=== PATIENT | female | born 1990 | race Caucasian/White ===

== ENCOUNTER → 2017-10-27 | Outpatient (CLI) | payer MEDICAID ==
[~2017-10-27] MED LIST: LEVO.075 PO
== END ==
LOC: HPND 09:19 → MERGE 09:45
PROVIDERS: ATTEND Obstetrics & Gynecology
DX: O99.282 Endocrine, nutritional and metabolic diseases complicating pregnancy, second trimester (principal); O99.89 Other specified diseases and conditions complicating pregnancy, childbirth and the puerperium; M32.9 Systemic lupus erythematosus, unspecified
CPT/HCPCS: 76816

== ENCOUNTER → 2017-11-25 | Outpatient (CLI) | payer MEDICAID | LOC: HPND 09:20 | PROVIDERS: ATTEND Obstetrics & Gynecology | DX: O99.282 Endocrine, nutritional and metabolic diseases complicating pregnancy, second trimester (principal); O99.89 Other specified diseases and conditions complicating pregnancy, childbirth and the puerperium; M32.9 Systemic lupus erythematosus, unspecified | CPT/HCPCS: 76816 ==

== ENCOUNTER → 2017-12-23 | Outpatient (CLI) | payer MEDICAID | LOC: HPND 14:05 | PROVIDERS: ATTEND Obstetrics & Gynecology | DX: O99.283 Endocrine, nutritional and metabolic diseases complicating pregnancy, third trimester (principal); O09.293 Supervision of pregnancy with other poor reproductive or obstetric history, third trimester; O99.89 Other specified diseases and conditions complicating pregnancy, childbirth and the puerperium; M32.9 Systemic lupus erythematosus, unspecified | CPT/HCPCS: 76816 ==

== ENCOUNTER 2018-02-09 12:05 | Emergency (ER) | payer MEDICAID ==
[2018-02-09] MEDS ORDERED: VALA1TAB PO (13:15)
--- NOTE | 2018-02-09 13:15 | PD ---
HPI Chief Complaint Painful lymph node in the groin and a painful vulvar lesion on the right Date Seen: Feb 09, 2018 Time Seen: 13:00 Travel History International Travel<30 Days: No Contact w/Intl Traveler<30Days: No Known Affected Area: No History of Present Illness HPI Patient is 27-year-old white female A4 now [address] Nelson in the [facility] and presents here with 1 day history of a vaginal vulvar painful ulcer purulent and pain in her right groin from a swollen lymph node patient states she has no history of sexually transmitted disease herpes syphilis gonorrhea. She has never had this kind of ulcer or lesion before. States that she did run some fever yesterday but not today has not taken any Tylenol or medicine for the pains just pretty bad pain related to this lesion. Baby is active heart rate tracing is reactive she is not alberta and she plans a vaginal delivery. Weeks Gestation: 37 Para: 1 : 6 Last Menstrual Period: Feb 09, 2018 Miscarriage: 4 History Past Medical History Narrative Medical Patient has a history of a lupus but is not on steroids at this time, he has a history of Franchesca's thyroiditis and takes Synthroid now. She has not been treated with radioactive iodine or surgery for hyperthyroid she states that her levels just go up and down periodically and she takes Synthroid but has never needed any other medication or treatment, has a history of asthma Obstetric History Obstetric History 4 early losses and one vaginal delivery in the past Social History Alcohol Use: No Tobacco Use: No Substance Abuse: No Allergies-Medications (Allergen,Severity, Reaction): Coded Allergies: No Known Allergies (Verified , 09/16/08) Home Meds Active Scripts Valacyclovir (Valacyclovir) 1,000 Mg Tab, 1000 MG PO BID for Mgmt Viral Infection for 10 Days, #2 TAB 1 Refill Prov:Scott Wells II, MD 02/09/18 Reported Medications Levothyroxine Sodium (Synthroid) 75 Mcg Tab, 75 MCG PO DAILY, 0 Refills 09/19/08 Review of Systems General / Constitutional: No: Fever, Weight Gain, Chills, Other Eyes: No: Diploplia, Blurred Vision, Visual changes, Pain, Photophobia HENT: No: Headaches, Vertigo, Lightheadedness Cardiovascular: No: Irregular Rhythm, Chest Pain or Discomfort, Palpitations, Tachycardia, Syncope, Varicosities, Edema, Cyanosis Respiratory: No: Cough, Short of Breath, Other Gastrointestinal: No: Nausea, Vomiting, Diarrhea Genitourinary: No: Decreased Urinary Output, Oliguria Musculoskeletal: No: Limited ROM, Weakness, Cramping, Edema, Pain Skin: No Rash, No Itching, No Dryness, No Lumps, No Change in Pigmentation, No Change in Nails, No Alopecia, No Lesions Neurologic: No: Weakness, Dizziness, Syncope, Focal Abnormalities, Coordination Problem, Headache, Slurred Speech, Seizures Psychiatric: No: Depression, Suicidal Ideations, Homicidal Ideation Endocrine: No: Heat Intolerance, Cold Intolerance, Polydipsia, Polyuria, Other Physical Exam Narrative GENERAL: Well-nourished, well-developed patient. SKIN: Warm and dry. HEAD: Normocephalic and atraumatic. EYES: No scleral icterus. No injection or drainage. ENT: No nasal drainage noted. Mucous membranes pink. Airway patent. NECK: Supple, trachea midline. No JVD. CARDIOVASCULAR: Regular rate and rhythm without murmurs, gallops, or rubs. RESPIRATORY: Breath sounds equal bilaterally. No accessory muscle use. BREASTS: Bilateral exam showed no masses , no retractions, no nipple discharge. ABDOMEN/GI: Abdomen soft, non-tender, bowel sounds present, no rebound, no guarding , in the right inguinal area that she there is some swelling and tenderness and there is a hint of a swollen lymph nodes there but is not directly palpable and is to tenderl to squeeze that hard Gravid to [37-] weeks size Fundal Height: [37-] GENITOURINARY: External Genitalia: The right labia minora and the lower half of that there is a small 4 mm lesion that is circular with small pustular center and this area is swollen, indurated and very tender, herpes culture was performed [-] Presentation: [-vtx] Membranes: [intact ] Uterine Contractions: [none-] FHT's: Category: [1-] Baseline: [133-] Reactive: [R-] Variability: [-mod] Decels: [-none] EXTREMITIES: No cyanosis or edema. BACK: Nontender without obvious deformity. No CVA tenderness. NEUROLOGICAL: Awake and alert. Motor and sensory grossly within normal limits. Five out of 5 muscle strength in all muscle groups. Normal speech. Data Data Orders Orders Hsv 1,2 Abs Igm (02/09/18 12:56) Herpes Simplex Virus Culture (02/09/18 12:56) Labs Herpes culture done and is pending MDM Interpretation(s) Patient is 27-year-old white female at 37 weeks he goes to [facility] for care. She has a 1 day history of painful vulvar lesion with swelling and swelling in the ipsilateral lymph node and inguinal area. She has no history of STDs , herpes gonorrhea syphilis ,. She has never had a similar lesion or spot develop in the past. 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 Also serum HSV 1 and 2 IgM being drawn. I explained her that I did not know it was herpes but it was highly suspicious of that and that she needed to know what we were thinking because she is 37 weeks and close to delivery I explained to her that if this lesion is present and she goes into labor or her water breaks she will have to have a , if it goes away and starts to come back she needs a , however if she takes medication the lesion goes away and she is at least a few days out from total recovery then she could potentially deliver normally per vagina. She will take Tylenol for pain and use an ice pack for the swelling and for comfort. I will discuss all the above with her family practice doctor Dr. Carlton Nelson Diagnosis Diagnosis: Primary Impression: Vulvar ulcer Additional Impression: Lymphadenopathy, inguinal Disposition: 01 DISCHARGE HOME Condition: Stable Scripts Valacyclovir (Valacyclovir) 1,000 Mg Tab 1000 MG PO BID for Mgmt Viral Infection for 10 Days, #2 TAB 1 Refill Prov: Scott Wells II, MD 02/09/18 Scott Wells II, MD Feb 09, 2018 13:15
[2018-02-12 23:51] LABS: HSV IGM IFA NEGATIVE; HSV2 IGM IFA NEGATIVE
== END 2018-02-09 13:46 | disposition home or self-care (01) ==
LOC: HOBED 12:05
DX: O23.593 Infection of other part of genital tract in pregnancy, third trimester (principal); O26.893 Other specified pregnancy related conditions, third trimester; R59.0 Localized enlarged lymph nodes; Z3A.37 37 weeks gestation of pregnancy
CPT/HCPCS: 36415; 59025; 86695; 86696; 87255

== ENCOUNTER 2018-02-19 15:10 | Emergency (ER) | payer MEDICAID ==
[~2018-02-19 15:10] MED LIST changes: +VALA1TAB PO
[2018-02-19 15:35] VITALS: BP 116/77; PULSE 94
--- NOTE | 2018-02-19 16:04 | PD ---
HPI Chief Complaint decreased mvt Date Seen: Feb 19, 2018 Time Seen: 15:47 Travel History International Travel<30 Days: No Contact w/Intl Traveler<30Days: No History of Present Illness HPI Patient is a 27 year old female at 39 and 1/7 weeks gestation, EDC 2017, known to [facility]. She presents with decreased movement. She notes baby has been hiccuping but not active for about 14hr. She had Reactive NST 02/18 ( yesterday) [facility] with reported EFW 8lb at that time. She denies leakage of fluid, vaginal bleeding. She has some LE swelling but denies CH/N/V/D /fever/sick contacts/SOB/calf pain/dizziness/seeing spots. OB care is with Dr. Carlton Nelson. CIARA 02/16/2018. PMH significant for lupus, hypothyroidism on Synthroid, PCOS on metformin, and Eclampsia in 2011. She established with [facility] officially in September 2017 and has had serial ultrasounds every 4 weeks for growth and twice weekly testing since 32 weeks gestation. History Past Medical History Narrative Medical PCOS Hypothyroidism History of eclampsia 2011 Lupus - negative SSA and SSB Vaginal lesion, status post clindamycin, viral culture/serology negative January 2018 Obstetric History Obstetric History 0141 4 spontaneous abortions One living male child born at 35 weeks gestation in 2011 (eclampsia) Past Surgical History Narrative Surgical D&C for miscarriage [place] teeth removal Family History Narrative Family History Mother and maternal aunt with depressive disorder, thyroid dysfunction Social History Alcohol Use: No Tobacco Use: No Substance Abuse: No Allergies-Medications (Allergen,Severity, Reaction): Coded Allergies: Penicillins (Verified Allergy, Severe, hives, vomiting, 02/09/18) strawberry (Verified Allergy, Severe, Anaphylaxis, 02/09/18) Home Meds Active Scripts Valacyclovir (Valacyclovir) 1,000 Mg Tab, 1000 MG PO BID for Mgmt Viral Infection for 10 Days, #2 TAB 1 Refill Prov:Scott Wells II, MD 02/09/18 Reported Medications Levothyroxine Sodium (Synthroid) 75 Mcg Tab, 75 MCG PO DAILY, 0 Refills 09/19/08 Review of Systems General / Constitutional: No: Fever, Chills Eyes: No: Blurred Vision, Visual changes HENT: No: Headaches, Vertigo Cardiovascular: No: Chest Pain or Discomfort, Palpitations Respiratory: No: Cough, Short of Breath Gastrointestinal: Abdominal Pain, No: Nausea, Vomiting, Diarrhea Genitourinary: No: Frequency, Dysuria, Hematuria Skin: No Rash, No Itching Physical Exam Narrative GENERAL: Well-nourished, well-developed female in no apparent distress. SKIN: Warm and dry. HEAD: Normocephalic and atraumatic. EYES: No scleral icterus. No injection or drainage. ENT: No nasal drainage noted. Mucous membranes pink. Airway patent. NECK: Supple, trachea midline. No JVD. CARDIOVASCULAR: Regular rate and rhythm without murmurs, gallops, or rubs. RESPIRATORY: Breath sounds equal bilaterally. No accessory muscle use. ABDOMEN/GI: Abdomen soft, non-tender, bowel sounds present, no rebound, no guarding Gravid to 40 weeks size GENITOURINARY: External Genitalia: intact and normal in appearance Cervix: 50/-3 Presentation: Vertex Membranes: [Intact Uterine Contractions: [None apparent FHT's: Category: 1 Baseline: 150s Reactive: y Variability: mod Decels: Absent EXTREMITIES: No cyanosis or edema. BACK: Nontender without obvious deformity. No CVA tenderness. NEUROLOGICAL: Awake and alert. Motor and sensory grossly within normal limits. Five out of 5 muscle strength in all muscle groups. Normal speech. Data Data Vital Signs Reviewed: Yes (BP 116/77, afebrile) Orders Orders Vital Signs (Adult) .ON ADMISSION (02/19/18 15:47) ^ Labor Status (02/19/18 15:47) ^ Non Stress Test (02/19/18 15:47) ^ Hydration (02/19/18 15:47) Group B Strep: Positive (02/03/18) MDM Medical Record Reviewed: Yes Narrative Course / MDM Patient is a 27-year-old at 39 and 1/7 weeks today. She presents for decreased movement but has a reactive NST. Discussion with patient reveals that she would like to continue to the point of natural labor. We discussed that [facility] recommended induction at 38-39 weeks given her history of lupus/eclampsia. She opts to go home and is given precautions as well as preeclamptic precautions. Plan Discharge to home, patient has follow-up appointment already scheduled with me for NST on Thursday 02/22, counsled to f/u Diagnosis Diagnosis: Primary Impression: Decreased movement during Additional Impressions: History of eclampsia Lupus PCOS (polycystic ovarian syndrome) Hypothyroidism Disposition: 01 DISCHARGE HOME Condition: Stable Patient Instructions: Preeclampsia (ED), Having Your Baby: The Labor Process ( GEN) Monica Hernadez MD Feb 19, 2018 16:04
== END 2018-02-19 17:33 | disposition home or self-care (01) ==
LOC: HOBED 15:10
DX: O36.8130 Decreased fetal movements, third trimester, not applicable or unspecified (principal); O99.89 Other specified diseases and conditions complicating pregnancy, childbirth and the puerperium; M32.9 Systemic lupus erythematosus, unspecified; E28.2 Polycystic ovarian syndrome; O99.283 Endocrine, nutritional and metabolic diseases complicating pregnancy, third trimester; E03.9 Hypothyroidism, unspecified; Z3A.39 39 weeks gestation of pregnancy; Z88.0 Allergy status to penicillin; Z79.899 Other long term (current) drug therapy
CPT/HCPCS: 59025

== ENCOUNTER 2018-02-22 10:09 | Inpatient (IN) | payer MEDICAID ==
[~2018-02-22] VITALS: Ht 172.7 cm; Wt 116.0 kg
[2018-02-22] VITALS (59 sets, daily range): BP systolic 118–142; BP diastolic 60–77; PULSE 47–108; RESP 16–18; TEMP 98.2–98.9
[2018-02-22] MEDS ORDERED: CITRIC ACID-SODIUM CITRATE LIQ 30 ML UDC PO SCH (12:00)
[2018-02-22] MEDS ORDERED: LIDOCAINE HCL 1% 50 ML VIAL I-DERMAL PRN (12:00)
[2018-02-22] MEDS ORDERED: OXYTOCIN 30 UNITS-500ML PREMIX 500 ML IV ONE (12:00)
[2018-02-22] MEDS ORDERED: ONDANSETRON HCL 4 MG/2 ML VIAL IV PUSH PRN (12:00)
[2018-02-22] MEDS ORDERED: LIDOCAINE HCL 1% 50 ML VIAL INFIL PRN (12:00)
[2018-02-22] MEDS ORDERED: MINERAL OIL 10 ML VIAL TOPICAL PRN (12:00)
[2018-02-22] MEDS ORDERED: PREN1TAB45 PO (12:04)
--- NOTE | 2018-02-22 12:08 | HHI.HP ---
HPI Chief Complaint Variable decelerations Date Seen: Feb 22, 2018 Travel History International Travel<30 Days: No Contact w/Intl Traveler<30Days: No Known Affected Area: No History of Present Illness HPI Patient is a 27 year old female at 39 and 3/7 weeks gestation, EDC 2017, known to [facility]. She was referred to the L&D from [facility] as a direct admission due to variable decelerations observed on ultrasound. Patient gets OB care with Dr. Carlton Nelson of the [facility]. She denies fever, chills, headaches, blurry vision, chest pain, shortness of breath, vaginal bleeding, loss of fluid, vaginal discharge, dysuria. She has been having irregular [place] Adam contractions. PMH significant for lupus, hypothyroidism on Synthroid, PCOS on metformin, and Eclampsia in 2011. She established with [facility] officially in September 2017 and has had serial ultrasounds every 4 weeks for growth and twice weekly testing since 32 weeks gestation. Notably she is GBS positive and allergic to penicillin Weeks Gestation: 39 Para: 1 : 6 History Past Medical History Narrative Medical PCOS Hypothyroidism History of eclampsia 2011 Lupus - negative SSA and SSB Vaginal lesion, status post clindamycin, viral culture/serology negative January 2018 Obstetric History Obstetric History 0141 4 spontaneous abortions One living male child born at 35 weeks gestation in 2011 (eclampsia) Past Surgical History Narrative Surgical D&C for miscarriage [place] teeth removal Family History Narrative Family History Mother and maternal aunt with depressive disorder, thyroid dysfunction Social History Alcohol Use: No Tobacco Use: No Substance Abuse: No Allergies-Medications (Allergen,Severity, Reaction): Coded Allergies: Penicillins (Verified Allergy, Severe, hives, vomiting, 02/09/18) strawberry (Verified Allergy, Severe, Anaphylaxis, 02/09/18) Home Meds Active Scripts Valacyclovir (Valacyclovir) 1,000 Mg Tab, 1000 MG PO BID for Mgmt Viral Infection for 10 Days, #2 TAB 1 Refill Prov:Scott Wells II, MD 02/09/18 Reported Medications Vit,Calc76/Iron/Folic (Pnv 29-1 Tablet) 29 Mg Iron-1 Mg Tablet, 1 TAB PO DAILY 02/22/18 Levothyroxine Sodium (Synthroid) 75 Mcg Tab, 75 MCG PO DAILY, 0 Refills 09/19/08 Review of Systems General / Constitutional: No: Fever, Chills Eyes: No: Blurred Vision HENT: No: Headaches Cardiovascular: No: Irregular Rhythm, Chest Pain or Discomfort Respiratory: No: Short of Breath Gastrointestinal: No: Nausea, Vomiting, Abdominal Pain Genitourinary: No: Dysuria, Discharge, Vaginal Bleeding Musculoskeletal: Edema Skin: No Rash, No Itching Physical Exam Narrative GENERAL: Well-nourished, well-developed female in no apparent distress. SKIN: Warm and dry. HEAD: Normocephalic and atraumatic. EYES: No scleral icterus. No injection or drainage. ENT: No nasal drainage noted. Mucous membranes pink. Airway patent. NECK: Supple, trachea midline. No JVD. CARDIOVASCULAR: Regular rate and rhythm without murmurs, gallops, or rubs. RESPIRATORY: Breath sounds equal bilaterally. No accessory muscle use. ABDOMEN/GI: Abdomen soft, non-tender, bowel sounds present, no rebound, no guarding Gravid to 40 weeks size GENITOURINARY: External Genitalia: intact and normal in appearance Cervix: 2/50/-2 Presentation: Vertex Membranes: Intact Uterine Contractions: Irregular FHT's: Category: I Baseline: 145 Reactive: y Variability: mod Decels: Absent EXTREMITIES: No cyanosis or edema. BACK: Nontender without obvious deformity. No CVA tenderness. NEUROLOGICAL: Awake and alert. Motor and sensory grossly within normal limits. Five out of 5 muscle strength in all muscle groups. Normal speech. Caprini VTE Risk Assessment Caprini VTE Risk Assessment: No/Low Risk (score <= 1) Caprini Risk Assessment Model Point Value = 1 Point Value = 2 Point Value = 3 Point Value = 5 Age 41-60 Minor surgery BMI > 25 kg/m2 Swollen legs Varicose veins or History of unexplained or recurrent spontaneous Oral contraceptives or hormone replacement Sepsis (< 1 month) Serious lung disease, including pneumonia (< 1 month) Abnormal pulmonary function Acute myocardial infarction Congestive heart failure (< 1 month) History of inflammatory bowel disease Medical patient at bed rest Age 61-74 Arthroscopic surgery Major open surgery (> 45 min) Laparoscopic surgery (> 45 min) Malignancy Confined to bed (> 72 hours) Immobilizing plaster cast Central venous access Age >= 75 History of VTE Family history of VTE Factor V Leiden Prothrombin [id number] Lupus anticoagulant Anticardiolipin antibodies Elevated serum homocysteine Heparin-induced thrombocytopenia Other congenital or acquired thrombophilia Stroke (< 1 month) Elective arthroplasty Hip, pelvis, or leg fracture Acute spinal cord injury (< 1 month) Prophylaxis Regimen Total Risk Factor Score Risk Level Prophylaxis Regimen 0-1 Low Early ambulation 2 Moderate Order ONE of the following: *Sequential Compression Device (SCD) *Heparin 5000 units SQ BID 3-4 Higher Order ONE of the following medications: *Heparin 5000 units SQ TID *Enoxaparin/Lovenox 40 mg SQ daily (WT < 150 kg, CrCl > 30 mL/min) *Enoxaparin/Lovenox 30 mg SQ daily (WT < 150 kg, CrCl > 10-29 mL/min) *Enoxaparin/Lovenox 30 mg SQ BID (WT < 150 kg, CrCl > 30 mL/min) AND/OR *Sequential Compression Device (SCD) 5 or more Highest Order ONE of the following medications: *Heparin 5000 units SQ TID (Preferred with Epidurals) *Enoxaparin/Lovenox 40 mg SQ daily (WT < 150 kg, CrCl > 30 mL/min) *Enoxaparin/Lovenox 30 mg SQ daily (WT < 150 kg, CrCl > 10-29 mL/min) *Enoxaparin/Lovenox 30 mg SQ BID (WT < 150 kg, CrCl > 30 mL/min) AND *Sequential Compression Device (SCD) Data Data Orders Orders Admit To Inpatient (02/22/18 ) Code Status (02/22/18 11:59) Vital Signs (Adult) .Per protocol (02/22/18 11:59) Heart (02/22/18 11:59) Amnioinfusion (02/22/18 11:59) Urinary Catheter Management .ONCE (02/22/18 11:59) Diet Liquid (02/22/18 Lunch) Lactated Ringer's 1000 Ml Inj (Lr 1000 M (02/22/18 11:59) Lactated Ringer's 1000 Ml Inj (Lr 1000 M (02/22/18 11:59) Sodium Chlorid 0.9% 500 Ml Inj (Ns 500 M (02/22/18 12:00) Sodium Chlor 0.9% 1000 Ml Inj (Ns 1000 M (02/22/18 12:19) Lidocaine 1% Inj (50 Ml) (Xylocaine 1% I (02/22/18 12:00) Citric Acid-Sodium Citrate Liq (Bicitra (02/22/18 12:00) Ondansetron Inj (Zofran Inj) (02/22/18 12:00) Fentanyl Inj (Fentanyl Inj) (02/22/18 12:00) Fentanyl Inj (Fentanyl Inj) (02/22/18 12:00) Complete Blood Count With Diff (02/22/18 11:59) Hold Clot (02/22/18 11:59) Abo/Rh Blood Type (02/22/18 11:59) Urinalysis - C+S If Indicated (02/22/18 11:59) Drug Screen, Random Urine (02/22/18 11:59) Ob/Psych Drug Screen, Urine (02/22/18 11:59) Resp Oxygen Non Rebreathe Mask (02/22/18 ) ^ Epidural / Intrathecal Infus (02/22/18 11:59) Oxytocin 30 Units-500ml Premix (Pitocin (02/22/18 12:00) Lidocaine 1% Inj (50 Ml) (Xylocaine 1% I (02/22/18 12:00) Light Mineral Oil (Muri-Lube Oil) (02/22/18 12:00) Inpatient Certification (02/22/18 ) Specimen To Be Collected PRN (02/22/18 11:59) Specimen To Be Collected PRN (02/22/18 11:59) Misoprostol (Cytotec) (02/22/18 12:00) Assessment/Plan Problem List: (1) 39 weeks gestation of ICD Codes: Z3A.39 - 39 weeks gestation of (2) Lupus (systemic lupus erythematosus) ICD Codes: M32.9 - Systemic lupus erythematosus, unspecified (3) Hypothyroidism ICD Codes: E03.9 - Hypothyroidism, unspecified Assessment and Plan IUP - heart tones category 1, reassuring -Continue routine care Induction of labor -Admit to L&D -Cytotec 25 mcg administered buccally every 4 hours -Augment with Pitocin as needed, titrate per protocol -GBS positive, start prophylaxis with clindamycin once in active labor -Expect vaginal delivery Hypothyroidism -Continue Synthroid 75 mcg daily Discussed with Ilsa Urena MD Feb 22, 2018 12:07
[2018-02-22] MEDS ORDERED: LACTATED RINGER'S 1000 ML INJ 1,000 ML IV PRN (12:15)
[2018-02-22] MEDS: LACTATED RINGER'S 1000 ML INJ 1,000 ML IV SCH ×2 (12:15→17:38)
[2018-02-22 12:17] LABS: AUTOMATED NEUTROPHIL # 10.2 TH/MM3 (1.8-7.7); BASOPHIL % 0.2 % (0.0-2.0); EOSINOPHIL # 0.1 TH/MM3 (0-0.4); HEMATOCRIT 37.4 % (35.0-46.0); HEMOGLOBIN 12.5 GM/DL (11.6-15.3); LYMPH % 15.4 % (9.0-44.0); LYMPHOCYTE # 2.1 TH/MM3 (1.0-4.8); MEAN CELL VOLUME 85.7 FL (80.0-100.0); MEAN CORPUSCULAR HEMOGLOBIN 28.6 PG (27.0-34.0); MEAN CORPUSCULAR HGB CONC 33.4 % (32.0-36.0); MEAN PLATELET VOLUME 9.6 FL (7.0-11.0); MONO % 8.2 % (0.0-8.0); MONOCYTE # 1.1 TH/MM3 (0-0.9); NEUT % 75.2 % (16.0-70.0); PLATELET COUNT 226 TH/MM3 (150-450); RED BLOOD COUNT 4.36 MIL/MM3 (4.00-5.30); RED CELL DISTRIBUTION WIDTH 14.8 % (11.6-17.2); WHITE BLOOD COUNT 13.6 TH/MM3 (4.0-11.0)
[2018-02-22] MEDS ORDERED: SODIUM CHLOR 0.9% 1000 ML INJ 1,000 ML IV PRN (12:19)
[2018-02-22 12:31] LABS: BILIRUBIN, URINE NEG (NEG); BLOOD, URINE NEG (NEG); GLUCOSE,URINE NEG (NEG); KETONE, URINE NEG (NEG); NITRITE,URINE NEG (NEG); SQUAMOUS EPITHELIAL CELL URINE 6 /hpf (0-5); URINE COLOR YELLOW (YELLW/STRAW); URINE LEUKOCYTE ESTERASE NEG (NEG)
[2018-02-22] MEDS ORDERED: SODIUM CHLORID 0.9% 500 ML INJ 500 ML IV PRN (12:35)
[2018-02-22] MEDS: MISOPROSTOL 100 MCG TAB SCH ×2 (12:38→17:00)
--- NOTE | 2018-02-22 14:02 | PD.CONS ---
Ilsa Orourke MD Feb 22, 2018 14:02
[2018-02-22] MEDS ORDERED: CEFAZOLIN INJ 2,000 MG in SODIUM CHLORIDE 0.9% INJ 100 ML IV ONE (19:00)
[2018-02-23] VITALS (70 sets, daily range): BP systolic 103–140; BP diastolic 58–88; PULSE 51–208; RESP 18–22; TEMP 98–99.7
[2018-02-23] MEDS: MISOPROSTOL 25 MCG TAB OTHER SCH ×3 (00:27→06:00)
[2018-02-23] MEDS ORDERED: fentaNYL 2MCG-BUPIV 0.125% INJ 100 ML ONE (03:47)
[2018-02-23] MEDS ORDERED: ePHEDrine/NS 25 MG/5 ML SYRINGE ONE (03:47)
[2018-02-23] MEDS: LACTATED RINGER'S 1000 ML INJ 1,000 ML IV SCH (04:15)
[2018-02-23] MEDS ORDERED: ePHEDrine/NS 25 MG/5 ML SYRINGE IV PUSH PRN (04:45)
[2018-02-23] MEDS ORDERED: NO SYSTEM NARCOTICS PRN (04:45)
[2018-02-23] MEDS ORDERED: DO NOT ADMINISTER ANTICOAGULANTS PRN (04:45)
[2018-02-23] MEDS ORDERED: fentaNYL 2MCG-BUPIV 0.125% 100 ML EPIDURAL SCH (04:45)
[2018-02-23] MEDS: LEVOTHYROXINE SODIUM 75 MCG TAB PO SCH (05:49)
[2018-02-23] MEDS ORDERED: LIDOCAINE HCL 1% PF 30 ML VIAL ONE (06:09)
--- NOTE | 2018-02-23 07:57 | PD.OB.DELI ---
Weeks gestation: 39 Gest age assessed date: Feb 23, 2018 Anesthesia: Epidural Episiotomy: None Vaginal Delivery: Normal, Spontaneous Presentation: Occiput anterior Nuchal Cord: None Delayed cord clamping (45 sec): Yes Infant: Female Delivery date: Feb 23, 2018 Delivery time: 07:24 One Minute : 7 Five Minute : 9 Weight: will weigh after initial skin/skin Placenta: Spontaneous delivery Laceration: Vaginal laceration, 1 deg Repair: Vicryl interrupted Estimated blood loss: minimal; ~200ml Additional Information Delivery assisted by Dr. Hines True knot in cord Left vaginal sidewall with 1st degree laceration. This was repaired with 4 interrupted 3-0 Vicryl sutures after local Lidocaine applied Minimal blood loss Patient doing well after delivery Carlton Nelson MD, R3 Feb 23, 2018 07:57
[2018-02-23] MEDS ORDERED: SODIUM CHLORIDE 0.9% FLUSH 10 ML FLUSH IV FLUSH PRN (08:00)
[2018-02-23] MEDS ORDERED: ONDANSETRON ODT 4 MG TAB PO PRN (08:00)
[2018-02-23] MEDS ORDERED: WITCH HAZEL 50%/GLYCERIN 12.5% 40 PAD JAR TOPICAL PRN (08:00)
[2018-02-23] MEDS ORDERED: BENZOCAINE 20% TOPICAL SPRAY 60 ML CAN TOPICAL PRN (08:00)
[2018-02-23] MEDS ORDERED: ZOLPIDEM TARTRATE 5 MG TAB PO PRN (08:00)
[2018-02-23] MEDS ORDERED: oxyCODONE/ACETAMINOPHEN 5 MG/325 MG TAB PO PRN ×2 (08:00)
[2018-02-23] MEDS ORDERED: ALUMINUM/MAGNESIUM/SIMETH 30 ML CUP PO PRN (08:00)
[2018-02-23] MEDS ORDERED: IBUPROFEN 800 MG TAB PO PRN (08:00)
[2018-02-23] MEDS ORDERED: OXYTOCIN 30 UNITS-500ML PREMIX 500 ML IV SCH (08:00)
[2018-02-23] MEDS ORDERED: SODIUM CHLORIDE 0.9% FLUSH 10 ML FLUSH IV FLUSH SCH (09:00)
[2018-02-23] MEDS: BENZONATATE 100 MG CAP PO PRN (14:16)
[2018-02-23] MEDS: ACETAMINOPHEN 325 MG TAB PO PRN ×2 (15:56→21:53)
[2018-02-23] MEDS ORDERED: MEASLES, MUMPS, RUBELLA VACCINE 0.5 ML VIAL SQ ONE (16:00)
[2018-02-23] MEDS ORDERED: DIPHTH/TETANUS/ACEL PERTUSSIS (BOOSTER) 0.5 ML VIAL/PFS IM ONE (16:00)
--- NOTE | 2018-02-23 19:31 | HHI.FPPN ---
Addendum to progress note ADDENDUM Reason for addendum: Additonal documentation Additional information S: Residents paged regarding patient having heavier than expected vaginal bleeding today. On discussion with nursing staff, patient has not had bleeding concern for true hemorrhage but has been soaking parts of pads throughout the day with additional bleeding when coughing. Uterus has been firm. T99.7 1 hr after delivery. Patient states that she has felt bleeding when coughing throughout the day. She feels her uterus tightening when . She has been coughing today but this helped when using Tessalon Perles. Patient is not aware of any clotting disorder in family or propensity for bleeding. O: No acute distress Uterus firm; no excessive pain to palpation Vaginal- left sidewall laceration without any visible bleeding Minimal blood in vaginal vault; no vaginal bleeding with fundal massage A/P: Vaginal bleeding ~12 hrs after delivery Impression: Firm uterus. No active bleeding on exam. I was present at delivery; I am confident of lack of retained placenta. Normal maternal VS today -Will give additional Pitocin 30 U x1 and continue to monitor for vaginal bleeding and maternal status -Will plan to re-evaluate after Pitocin administration Carlton Nelson MD, R3 Feb 23, 2018 19:31
[2018-02-23] MEDS ORDERED: OXYTOCIN 30 UNITS-500ML PREMIX 500 ML ONE (19:33)
[2018-02-24] MEDS: BENZONATATE 100 MG CAP PO PRN ×2 (00:12→22:56)
[2018-02-24] MEDS: ACETAMINOPHEN 325 MG TAB PO PRN ×2 (02:04→10:42)
[2018-02-24 07:30] VITALS: BP 111/62; PULSE 93; RESP 18; TEMP 98.7
[2018-02-24] MEDS: LEVOTHYROXINE SODIUM 75 MCG TAB PO SCH (07:30)
--- NOTE | 2018-02-24 09:07 | HHI.OB ---
Subjective Post Day: 1 Remarks Ms. Najera is a 27 year old female who is PPD 1 from induced vaginal delivery 02/23 at 0724. Interval History: Nursing concern yesterday for heavier than expected vaginal bleeding but not hemorrhage; 30 U additional IV Oxytocin given. No subsequent concerns overnight. Afebrile with stable vital signs overnight. Patient states that she is doing well today. Patient reports that her vaginal bleeding is now minimal. Patient is well; she reports some blisters on her nipples but that her discomfort is minimal. Patient has some cough with productive sputum; no fevers or shortness of breath. Patient feels that she does better after she expels mucus. Patient reports Tessalon Perles help her cough. Patient reports she is urinating without urgency or pain; she had some pain previously from urine touching her vaginal sutures. Patient ambulating well. No bowel movement. Patient reports mild bilateral leg swelling. Patient not interested in contraception. Objective Vitals/I&O Vital Signs Date Time Temp Pulse Resp B/P (MAP) Pulse Ox O2 Delivery O2 Flow Rate FiO2 02/23/18 20:31 98.1 93 18 115/73 (87) 02/23/18 08:58 99.7 20 Objective Remarks GENERAL: Well-nourished, well-developed patient. CARDIOVASCULAR: Regular rate and rhythm without murmurs. Normal perfusion RESPIRATORY: CTAB; normal rate ABDOMEN/GI: Abdomen soft, non-tender. Fundus: Firm, non-tender at umbilicus. GENITOURINARY: Light bleeding. EXTREMITIES: No cyanosis or edema, non-tender, without signs of DVT. Medications and IVs Current Medications Medications (Trade) Dose Ordered Sig/Selwyn Route Start Time Stop Time Status Last Admin (Synthroid) 75 mcg DAILY@0600 PO 02/23/18 06:00 02/24/18 07:30 Cefazolin Sodium 1000 mg/Sodium Chloride 100 ml @ 200 mls/hr Q4H IV 02/22/18 23:00 02/23/18 07:00 Fentanyl/ Bupivacaine HCl 100 ml @ 0 mls/hr TITRATE EPIDURAL 02/23/18 04:45 02/23/18 05:51 (NS Flush) 2 ml BID IV FLUSH 02/23/18 09:00 (NS Flush) 2 ml UNSCH PRN IV FLUSH 02/23/18 08:00 (Tylenol) 650 mg Q4H PRN PO 02/23/18 08:00 02/24/18 02:04 (Motrin) 800 mg Q8H PRN PO 02/23/18 08:00 (Percocet 5-325 Mg) 1 tab Q4H PRN PO 02/23/18 08:00 (Percocet 5-325 Mg) 2 tab Q4H PRN PO 02/23/18 08:00 (Americaine 20% Top Spr) 1 spray Q4H PRN TOPICAL 02/23/18 08:00 (Tucks Pads) 1 applic QID PRN TOPICAL 02/23/18 08:00 (Mindy-Colace) 2 tab Q12H PRN PO 02/23/18 08:00 (Ambien) 5 mg HS PRN PO 02/23/18 08:00 (Mag-Al Plus Susp Liq) 15 ml Q8H PRN PO 02/23/18 08:00 (Zofran Odt) 4 mg Q6H PRN PO 02/23/18 08:00 (Tessalon) 200 mg TID PRN PO 02/23/18 13:00 02/24/18 00:12 Assessment/Plan Problem List: (1) 39 weeks gestation of ICD Codes: Z3A.39 - 39 weeks gestation of Status: Acute (2) Lupus (systemic lupus erythematosus) ICD Codes: M32.9 - Systemic lupus erythematosus, unspecified Status: Chronic (3) Hypothyroidism ICD Codes: E03.9 - Hypothyroidism, unspecified Status: Chronic Assessment and Plan Ms. Najera is a 27 year old female who is PPD 1 from induced vaginal delivery 02/23 at 0724. -Routine care -Continue to monitor VS, vaginal bleeding -Continue pain control -Continue breast feeding support -Contraception declined -Will give Colace for BM SLE Impression: Antepartum SSA/SSB per MFM was negative. Patient not on chronic medications; Prednisone for flares Hypothyroidism Impression: Well controlled; TSH <2.5 antepartum -Continue Levothyroxine 75mcg daily IUP - heart tones category 1, reassuring -Continue routine care Induction of labor -Admit to L&D -Cytotec 25 mcg administered buccally every 4 hours -Augment with Pitocin as needed, titrate per protocol -GBS positive, start prophylaxis with clindamycin once in active labor -Expect vaginal delivery Hypothyroidism -Continue Synthroid 75 mcg daily Discussed with Carlton Pond MD, R3 Feb 24, 2018 09:07
[2018-02-24] MEDS: DOCUSATE SODIUM 50 MG/SENNA 8.6 MG TAB PO PRN (15:44)
[2018-02-24 22:00] VITALS: BP 114/68; PULSE 85; RESP 16; TEMP 98.5
[2018-02-24] MEDS: diphenhydrAMINE HCL 25 MG CAP PO PRN (22:56)
[2018-02-25 07:45] VITALS: BP 102/56; PULSE 80; RESP 22; TEMP 97.7
--- NOTE | 2018-02-25 08:00 | HHI.OB ---
Subjective Post Day: 2 Remarks Ms. Najera is a 27 year old female who is PPD 2 from induced vaginal delivery 02/23 at 0724. Patient has been afebrile with stable vital signs overnight. Light vaginal bleeding. Patient is well. Ambulating well. Normal urination. Patient feels constipated but that Colace helps. Patient is ambulating normally. Pain is controlled with Ibuprofen. Patient continues to have a cough which is relieved by Tessalon Perles. No known fevers. No shortness of breath or leg swelling. Objective Vitals/I&O Vital Signs Date Time Temp Pulse Resp B/P (MAP) Pulse Ox O2 Delivery O2 Flow Rate FiO2 02/24/18 22:00 85 16 114/68 (83) 02/24/18 22:00 98.5 Objective Remarks GENERAL: Well-nourished, well-developed patient. CARDIOVASCULAR: Regular rate and rhythm without murmurs. Normal perfusion RESPIRATORY: CTAB; normal rate ABDOMEN/GI: Abdomen soft, non-tender. Fundus: Firm, non-tender at umbilicus. GENITOURINARY: Light bleeding. EXTREMITIES: No cyanosis or edema, non-tender, without signs of DVT. Medications and IVs Current Medications Medications (Trade) Dose Ordered Sig/Selwyn Route Start Time Stop Time Status Last Admin (Synthroid) 75 mcg DAILY@0600 PO 02/23/18 06:00 02/24/18 07:30 Fentanyl/ Bupivacaine HCl 100 ml @ 0 mls/hr TITRATE EPIDURAL 02/23/18 04:45 02/23/18 05:51 (NS Flush) 2 ml BID IV FLUSH 02/23/18 09:00 (NS Flush) 2 ml UNSCH PRN IV FLUSH 02/23/18 08:00 (Tylenol) 650 mg Q4H PRN PO 02/23/18 08:00 02/24/18 10:42 (Motrin) 800 mg Q8H PRN PO 02/23/18 08:00 02/24/18 22:58 (Percocet 5-325 Mg) 1 tab Q4H PRN PO 02/23/18 08:00 (Percocet 5-325 Mg) 2 tab Q4H PRN PO 02/23/18 08:00 (Americaine 20% Top Spr) 1 spray Q4H PRN TOPICAL 02/23/18 08:00 (Tucks Pads) 1 applic QID PRN TOPICAL 02/23/18 08:00 (Mindy-Colace) 2 tab Q12H PRN PO 02/23/18 08:00 02/24/18 15:44 (Ambien) 5 mg HS PRN PO 02/23/18 08:00 (Mag-Al Plus Susp Liq) 15 ml Q8H PRN PO 02/23/18 08:00 (Zofran Odt) 4 mg Q6H PRN PO 02/23/18 08:00 (Tessalon) 200 mg TID PRN PO 02/23/18 13:00 02/24/18 22:56 (Benadryl) 25 mg Q6H PRN PO 02/24/18 22:45 02/24/18 22:56 Assessment/Plan Problem List: (1) 39 weeks gestation of ICD Codes: Z3A.39 - 39 weeks gestation of Status: Acute (2) Lupus (systemic lupus erythematosus) ICD Codes: M32.9 - Systemic lupus erythematosus, unspecified Status: Chronic (3) Hypothyroidism ICD Codes: E03.9 - Hypothyroidism, unspecified Status: Chronic Assessment and Plan Ms. Najera is a 27 year old female who is PPD 2 from induced vaginal delivery 02/23 at 0724. -Routine care -Continue to monitor VS, vaginal bleeding -Continue pain control -Continue breast feeding support -Contraception declined -Will give Colace for BM SLE Impression: Antepartum SSA/SSB per MFM was negative. Patient not on chronic medications; Prednisone for flares Hypothyroidism Impression: Well controlled; TSH <2.5 antepartum -Continue Levothyroxine 75mcg daily Cough Impression: Suspect viral bronchial infection. -Will continue Tessalon -Patient will notify me if worsening as an outpatient Carlton Nelson MD, R3 Feb 25, 2018 08:00
--- NOTE | 2018-02-25 08:01 | HHI.DCPOC ---
Discharge Care Plan Diagnosis: (1) care following vaginal delivery Report Symptoms to Your Doctor -Temperature above 100.5 degrees -Redness, of incision or excessive or foul smelling drainage -Unusual pain or calf pain -Increased vaginal bleeding -Painful or difficulty urinating -Feelings of extreme sadness or anxiety after 2 weeks Goals to Promote Your Health * To prevent worsening of your condition and complications * To maintain your health at the optimal level Directions to Meet Your Goals Take your medications as prescribed Follow your dietary instruction Follow activity as directed Ensure plenty of rest for recovery Drink fluids for hydration Keep your appointments as scheduled Take your immunizations and boosters as scheduled If your symptoms worsen call your PCP, if no PCP go to Urgent Care Center or Emergency Room Smoking is Dangerous to Your Health. Avoid second hand smoke Call the 24-hour crisis hotline for domestic abuse at Carlton Nelson MD, R3 Feb 25, 2018 08:01
[2018-02-25] MEDS ORDERED: BENZ100 PO (08:03)
[2018-02-25] MEDS ORDERED: PERI PO (08:03)
[2018-02-25] MEDS ORDERED: IBUP1TAB7 PO (08:03)
[2018-02-25] MEDS: diphenhydrAMINE HCL 25 MG CAP PO PRN (09:56)
[2018-02-25] MEDS: DOCUSATE SODIUM 50 MG/SENNA 8.6 MG TAB PO PRN (09:56)
== END 2018-02-25 12:16 | disposition home or self-care (01) | DRG 775 ==
LOC: H2EB 10:09 → H1EA 02-23 09:32
PROVIDERS: ADMIT Obstetrics & Gynecology; ATTEND Obstetrics & Gynecology
PROC: 10E0XZZ Delivery of Products of Conception, External Approach (ICD-10-PCS; principal; 2018-02-23)
PROC: 0HQ9XZZ Repair Perineum Skin, External Approach (ICD-10-PCS; 2018-02-23)
DX: O76 Abnormality in fetal heart rate and rhythm complicating labor and delivery (principal); M32.9 Systemic lupus erythematosus, unspecified; O69.2XX0 Labor and delivery complicated by other cord entanglement, with compression, not applicable or unspecified; O99.284 Endocrine, nutritional and metabolic diseases complicating childbirth; O99.89 Other specified diseases and conditions complicating pregnancy, childbirth and the puerperium; E03.9 Hypothyroidism, unspecified; E28.2 Polycystic ovarian syndrome; O99.824 Streptococcus B carrier state complicating childbirth; M79.89 Other specified soft tissue disorders; O70.0 First degree perineal laceration during delivery; Z37.0 Single live birth; Z3A.39 39 weeks gestation of pregnancy; Z88.0 Allergy status to penicillin; Z23 Encounter for immunization
CPT/HCPCS: 59025; 76818; 80307; 81001; 85025; 86900; 86901; G0481; J0690; J2590; J3010; J7120